=== PATIENT | male | born 1945 | race Caucasian/White ===

== ENCOUNTER → 2023-02-12 16:20 | Outpatient (BNVA) | payer MEDICARE, BC, SELFPAY | PROVIDERS: Visit Provider Internal Medicine Cardiovascular Disease | DX: R07.9 Chest pain, unspecified (principal); R55 Syncope and collapse; I48.91 Unspecified atrial fibrillation; R01.1 Cardiac murmur, unspecified; I10 Essential (primary) hypertension; E78.5 Hyperlipidemia, unspecified | CPT/HCPCS: 93005; 99204 ==

== ENCOUNTER 2023-02-22 14:13 | Outpatient (CLI) | payer MEDICARE, BC, SELFPAY ==
--- NOTE | 2023-02-22 14:30 | USCV_ITS ---
Emigdio Davila Age: 77 Gender: M : 1945 Exam Date: 02/22/2023 14:57 Ordering Phys: Jon Jones MD ([email or web address]) Technologist: Uri Ruiz Exam Location: [facility] [place] Indication: heart murmur BP: 128 / 54 HR: 57 Rhythm: Sinus Technical Quality: Adequate MEASUREMENTS (Male / Female) Normal Values 2D ECHO LVOT Diameter 2.0 cm LV Ejection Fraction MOD 2C 55.4 % LV Ejection Fraction 2C AL 57.4 % LA Diameter 3.5 cm LA Width 3.4 cm LA Height 4.8 cm RA Width 3.1 cm RA Height 4.7 cm Aorta at Sinotubular Diameter 1.9 cm IVC Diameter 1.8 cm M-MODE Aortic Annulus Diameter 2.5 cm LA Ao Ratio MM 1.3 MV E Point Septal Separation 0.5 cm DOPPLER AV Peak Velocity 189.3 cm/s LVOT Peak Velocity 164.0 cm/s AV Area Cont Eq vti 2.4 cm squared AV Area Cont Eq pk 2.7 cm squared MV Peak Velocity 92.0 cm/s MV Area PHT 2.6 cm squared Mitral E to A Ratio 0.8 MV E' Velocity 38.0 cm/s Mitral E to MV E' Ratio 9.4 Mitral E to LV E' Lateral Ratio 9.9 Mitral E to LV E' Septal Ratio 8.9 TR Peak Velocity 239.3 cm/s TR Peak Gradient 22.9 mmHg TR Mean Velocity 183.5 cm/s TR Mean Gradient 15.9 mmHg TR Velocity Time Integral 52.3 cm Right Atrial Pressure 3.0 mmHg Pulmonary Artery Systolic Pressu 25.9 mmHg PV Peak Velocity 158.0 cm/s RV Acceleration Time 0.1 s RV Ejection Time 0.3 s RV AcT/ET 0.3 FINDINGS Left Ventricle Normal left ventricular size and systolic function, EF 64 %. No regional wall motion abnormalities. Grade I/IV diastolic dysfunction (abnormal relaxation filling pattern), normal to mildly elevated filling pressures. Right Ventricle The right ventricle is normal in size and function. Right Atrium The right atrium is normal in size. Left Atrium Mildly increased left atrial size. Mitral Valve Thickened mitral valve. Trace mitral valve regurgitation. Aortic Valve Thickened aortic valve. Tricuspid Valve Trace tricuspid valve regurgitation. Pulmonic Valve Pulmonic valve not well visualized. Pericardium Normal pericardium without effusion. Aorta Normal aortic annulus size. IVC Normal inferior vena cava. CONCLUSIONS Normal left ventricular size and systolic function, EF 64 %. No regional wall motion abnormalities. Grade I/IV diastolic dysfunction (abnormal relaxation filling pattern), normal to mildly elevated filling pressures. Mildly increased left atrial size. Thickened mitral valve. Trace mitral valve regurgitation. Thickened aortic valve. Trace tricuspid valve regurgitation. Estimated pulmonary artery peak systolic pressure was 26 mm of Hg. There is no pericardial effusion. No similar previous studies are available for comparison Dr Jon Jones MD [facility] (Electronically Signed) Final Date: 24 February 2023 14:44 S
== END 2023-02-22 14:14 | disposition home or self-care (01) ==
LOC: RAD 14:22
PROVIDERS: PCP Family Medicine; Visit Provider Internal Medicine Cardiovascular Disease
DX: R06.09 Other forms of dyspnea (principal); I08.0 Rheumatic disorders of both mitral and aortic valves
CPT/HCPCS: 93306

== ENCOUNTER → 2023-05-15 13:43 | Outpatient (BNVA) | payer MEDICARE, BC, SELFPAY | PROVIDERS: PCP Family Medicine; Visit Provider Nurse Practitioner Family | DX: I48.0 Paroxysmal atrial fibrillation (principal) | CPT/HCPCS: 99213 ==